=== PATIENT | female | born 1965 | race Caucasian/White ===

== ENCOUNTER 2016-12-07 08:30 | Outpatient (CLI) | payer SELFPAY | END 2016-12-07 20:36 | disposition home or self-care (01) | LOC: SMA 08:30 | PROVIDERS: ATTEND Obstetrics & Gynecology | DX: Z12.31 Encounter for screening mammogram for malignant neoplasm of breast (principal) | CPT/HCPCS: G0202 ==

== ENCOUNTER 2018-11-24 08:30 | Outpatient (CLI) | payer SELFPAY | END 2018-11-24 20:24 | disposition home or self-care (01) | LOC: SMA 08:30 | PROVIDERS: ATTEND Obstetrics & Gynecology | DX: Z12.31 Encounter for screening mammogram for malignant neoplasm of breast (principal) | CPT/HCPCS: 77067 ==